=== PATIENT | male | born 1995 | race Caucasian/White ===

== ENCOUNTER 2017-09-06 13:36 | Outpatient (CLI) | payer BC ==
--- NOTE | 2017-09-06 14:17 | RAD ---
RIGHT FOOT 2 VIEWS: Date: 09/06/17 HISTORY: Right foot pain, injury. FINDINGS/IMPRESSION: No acute fracture or dislocation is seen. POS: OFF
--- NOTE | 2017-09-06 14:17 | RAD ---
RIGHT ANKLE 2 VIEWS: Date: 09/06/17 HISTORY: Injury, right ankle pain. FINDINGS/IMPRESSION: No acute fracture or dislocation is seen. POS: OFF
== END 2017-09-06 13:37 | disposition home or self-care (01) ==
LOC: NAV RAD 13:36
PROVIDERS: ATTEND Family Medicine
DX: M79.671 Pain in right foot (principal)

== ENCOUNTER 2024-06-02 17:09 | Emergency (ER) | payer BC, SELFPAY ==
[2024-06-02] MEDS ORDERED: Sodium Chloride 0.9% 1,000 ML ONE (17:25)
[2024-06-02] MEDS ORDERED: Ondansetron PF 4 MG/2 ML Vial ONE ×2 (17:25→19:31)
[2024-06-02 17:55] LABS: ALT (SGPT) 42 U/L (8-55); AST (SGOT) 31 U/L (5-34); Albumin 5.1 g/dL (3.5-5.0); Alkaline Phosphatase 74 U/L (40-110); Anion Gap 19 mmol/L (10-20); BUN (Urea Nitrogen) 18 mg/dL (8.9-20.6); Bilirubin, Total 0.9 mg/dL (0.2-1.2); Calc. Creatinine Clearance 0 mL/min (70-130); Calcium 10.2 mg/dL (7.8-10.44); Carbon Dioxide 20 mmol/L (22-29); Chloride 106 mmol/L (98-107); Estimated GFR 89; Globulin 3.7 g/dL (2.4-3.5); Glucose 152 mg/dL (70-105); Lipase 32 U/L (8-78); Magnesium 1.6 mg/dL (1.6-2.6); Potassium 4.1 mmol/L (3.5-5.1); Protein, Total 8.8 g/dL (6.0-8.3); Sodium 141 mmol/L (136-145)
[2024-06-02 18:03] LABS: #Basophils 0.1 thou/uL (0.0-0.2); #Lymphocytes 0.7 thou/uL (1.20-3.40); #Monocytes 1.1 thou/uL (0.11-0.59); #Neutrophils 21.1 thou/uL (1.40-6.50); %Basophils 0.4 % (0.0-1.0); %Eosinophils 0.2 % (0.0-10.0); %Lymphocytes 3.1 % (21.0-51.0); %Monocytes 4.9 % (0.0-10.0); %Neutrophils 91.4 % (42.0-75.0); Hematocrit 55.1 % (42.0-52.0); Hemoglobin 19.3 g/dL (14.0-18.0); Mean Corpuscular HGB CONC 35.1 g/dL (32.0-36.0); Mean Corpuscular Hemoglobin 30.5 pg (27.0-31.0); Mean Platelet Volume 7.2 fL (7.4-10.4); Platelet Count 278 10x3/uL (130-400); Red Blood Cell (RBC) Count 6.33 mill/uL (4.70-6.10); White Blood Cell (WBC) Count 23.1 10x3/uL (4.8-10.8)
[2024-06-02] MEDS ORDERED: Promethazine HCl 25 MG/ML VIAL ONE (19:31)
[2024-06-02] MEDS ORDERED: Acetaminophen 500 MG TAB ONE (20:30)
== END 2024-06-02 20:43 | disposition home or self-care (01) ==
LOC: NAV ERS 17:09
DX: A08.4 Viral intestinal infection, unspecified (principal)
CPT/HCPCS: 80053; 83690; 83735; 85025; 87400; 87426; 94760; 96361; 96374; 96375; 96376; J2405; J2550; J7030